=== PATIENT | male | born 1945 | race Caucasian/White ===

== ENCOUNTER 2017-10-25 17:47 | Inpatient (IN) | payer OTHER ==
[~2017-10-25] VITALS: Ht 165.1 cm; Wt 73.0 kg
--- NOTE | ~2017-10-25 | H ---
[facility] [place] [place] [address] HISTORY AND PHYSICAL Name: PATRICIO LINCOLN Room #: 205-P ADM IN M.R.#: [id number] Admission: 10/25/17 Attend Phys: Isi Reddy MD Discharge: Date of : 43 Report #: [id number] THIS REPORT FOR: //name// CC: Yahir Reddy DATE OF SERVICE: 10/25/2017 ATTENDING PHYSICIAN: Isi Reddy MD. CHIEF COMPLAINT: Persistent nausea and fever. HISTORY OF PRESENT ILLNESS: The patient is a 72-year-old gentleman who was having persistent nausea for about a week and lower abdominal pain. He was seen in the office on and noted to have elevated white cell count. He was started on Cipro, which seemed to help with his abdominal pain. The patient continued to have persistent nausea at home and was just not able to keep any fluids down. He also started having a fever. He presented to the Emergency Room and on evaluation with a CT was noted to have a left lower lobe lung infiltrate, which was dense and also changes around the second part of the duodenum and stomach, suggestive of possible peptic ulcer disease with complication, possible perforation. The patient is now being admitted to the hospital. He was started on IV antibiotics and on IV fluids. He reports that he feels a little better. He reports that the nausea has also improved. PAST MEDICAL HISTORY: Significant for history of diverticulitis, thoracic kyphosis, hemorrhoids, sleep apnea, gastroesophageal reflux disease. PAST SURGICAL HISTORY: Figueroa patrick surgery in the back, hemorrhoid resection and colon resection. ALLERGIES: HE IS KNOWN TO BE ALLERGIC TO MORPHINE. MEDICATIONS: He currently on was gabapentin, simvastatin, hydrocodone, aspirin, tamsulosin, omeprazole, multivitamin, calcium supplement, vitamin E, ascorbic acid, Claritin, Singulair, Zantac, carbamazepine, meloxicam and Provigil. SOCIAL HISTORY: He is , lives with his . He does not smoke. REVIEW OF SYSTEMS: He did complain of having fever and also the abdominal pain. He had persistent nausea, did not report any cough, chest pain or any breathing difficulty or any shortness of air or any urinary symptoms. PHYSICAL EXAMINATION: GENERAL: Pleasant elderly gentleman who was resting in bed. VITAL SIGNS: He was febrile with a temperature of 36.8, pulse of 75, [facility] [address] [place] [address] HISTORY AND PHYSICAL Name: PATRICIO LINCOLN Room #: 205-P [facility] IN .R.#: [id number] Admission: 10/25/17 Attend Phys: Isi Reddy MD Discharge: Date of : 43 Report #: [id number] respiratory rate 18, blood pressure 115/56, oxygen saturation 93% on room air. HEENT: Skull was atraumatic. There was mild pallor, no icterus. Mucosa was moist. NECK: Supple. LUNGS: Clear with decreased air entry on the left side in the lung bases. HEART: First and second heart sound, which was normal. ABDOMEN: The patient had tenderness in the lower abdomen, which was diffuse. There was no guarding and bowel sounds are normally heard. There were no masses palpable. NEUROLOGIC: The patient was moving all 4 extremities equally and normally and cranial nerve examination normal. LABORATORY DATA: On admission showed urine, which was clear with no evidence of nitrites or leukocyte esterase. There was 1+ blood. White cell count was 9.2, hemoglobin 14, hematocrit 39.9 and a platelet count of 186. Sodium was 135, potassium 3.1, chloride of 98, bicarbonate 29, BUN of 12, creatinine of 0.9 and a glucose of 120. AST was 113, ALT of 98, alkaline phosphatase 158, albumin 2.7. CT of the abdomen showed focal thickening and adjacent mild stranding around the second portion of the duodenum and distal stomach, suggestive of ulcer disease and possible infiltration, left lobe dense infiltrate with bronchograms suggestive of pneumonia, right inguinal canal mass, possible testicle or simple fluid and small abdominal aortic aneurysm. ASSESSMENT: 1. Left lung infiltrate. 2. Peptic ulcer disease, possible perforation. 3. Abdominal aortic aneurysm. 4. Hypokalemia. 5. Obstructive sleep apnea. 6. Gastroesophageal reflux disease. 7. Benign prostatic hypertrophy. PLAN: To restart his home medications and continue him on IV fluids along with clear liquid diet. We will have a GI consultation with Dr. Cortez for upper endoscopy and stop the meloxicam and the ibuprofen and replace the potassium. Also, continue on IV antibiotics, the Rocephin and Zithromax and monitor his lab work. By: [id number] Isi Reddy MD /nt
--- NOTE | ~2017-10-25 | D ---
[facility] [place] [address] [place] [address] DISCHARGE SUMMARY Name: PATRICIO LINCOLN Room #: 205-P [facility] IN M.R.#: [id number] Admission: 10/25/17 Attend Phys: Isi Reddy MD Discharge: 10/29/17 Date of : 43 Report #: [id number] THIS REPORT FOR: //name// CC: Yahir Reddy FINAL DIAGNOSES: 1. Community-acquired pneumonia. 2. Abdominal pain. 3. Nausea, vomiting. HOSPITAL COURSE: The patient was admitted with abdominal pain, nausea and vomiting. There was concern for some gastritis or duodenitis based on CT revealing some inflammation; however, there was a note in diagnosis of left lower lobe pneumonia, community acquired. He was treated with antibiotics with improvement of his symptoms. His GI issues resolved with symptomatic treatment. GI service recommended an EGD several weeks once his pneumonia clears. Followup x-ray was still revealing a patchy interstitial and alveolar infiltrate in the left mid lower lung. PHYSICAL EXAMINATION: GENERAL: On the day of discharge, he was awake and alert with stable vital signs including and O2 sat of 94% on room air. LUNGS: Clear. HEART: Regular. ABDOMEN: Soft, normoactive bowel sounds. EXTREMITIES: No edema. DISPOSITION: He is discharged to home with diet and activity as tolerated, resume all home medications. No anti-inflammatory medications. He will have Ceftin for one more week. Follow up with Dr. Arita next week and will need GI followup in a month. <ELECTRONICALLY SIGNED> By: Luis Alberto Dumont MD 10/30/17 [id number] Luis Alberto Dumont MD /nt
[2017-10-25 17:57] VITALS: BP 174/88
[2017-10-25 18:30] LABS: ABSOLUTE NEUTROPHILS 7.6 thou/uL (1.4-8.2); BASOPHILS 0.1 % (0.0-2.0); HEMATOCRIT 39.9 % (42.0-52.0); LYMPHOCYTES 4.2 % (24.0-44.0); MCH 35.3 pg (26.0-34.0); MCHC 35.1 g/dL (28.0-37.0); MCV 100.5 fL (80.0-100.0); PLATELET COUNT 186 thou/uL (150-400); POLYS 82.7 % (36.0-66.0); RBC 3.97 mil/uL (4.50-6.00); RDW 12.6 % (10.5-14.5); WBC 9.2 thou/uL (4.0-11.0)
[2017-10-25] MEDS ORDERED: ZOCOR20 MG PO (18:41)
[2017-10-25] MEDS ORDERED: NEURONTIN 300300 M1 PO (18:41)
[2017-10-25] MEDS ORDERED: FLONASE 0.05%50 MCG NASAL (18:42)
[2017-10-25] MEDS ORDERED: NORCO 10-325 T1 EACH PO (18:42)
[2017-10-25] MEDS ORDERED: FLOMAX0.4 MG PO (18:42)
[2017-10-25] MEDS ORDERED: ASPIR 8181 MG PO (18:42)
[2017-10-25] MEDS ORDERED: OMEPRAZOLE40 MG PO (18:43)
[2017-10-25] MEDS ORDERED: TUMS PO (18:43)
[2017-10-25] MEDS ORDERED: UNICOMPLEX M TA1 TA1 PO (18:43)
[2017-10-25] MEDS ORDERED: VITAMIN E400 UNI7 PO (18:44)
[2017-10-25 18:45] LABS: CALCIUM 9.6 mg/dL (8.5-10.1); CREATININE 0.9 mg/dL (0.7-1.3); POTASSIUM 3.1 mmol/L (3.5-5.1)
[2017-10-25] MEDS ORDERED: VITAMINC500 PO (18:45)
[2017-10-25] MEDS ORDERED: TYLENOL EXTRA500 MG PO (18:46)
[2017-10-25] MEDS ORDERED: ZANTAC 150MG T150 M1 PO (18:46)
[2017-10-25] MEDS ORDERED: SINGULAIR 10 MG10 M1 PO (18:46)
[2017-10-25] MEDS ORDERED: CLARITIN10 MG PO (18:46)
[2017-10-25] MEDS ORDERED: PROVIGIL 200 M200 M1 PO (18:47)
[2017-10-25] MEDS ORDERED: MOBIC15 MG PO (18:47)
[2017-10-25] MEDS ORDERED: CARBAMAZEPINE200 M5 PO (18:47)
[2017-10-25 18:49] LABS: ALBUMIN 2.7 g/dL (3.4-5.0); TOTAL BILIRUBIN 0.3 mg/dL (<0.1-1.0); TOTAL PROTEIN 7.8 g/dL (6.4-8.2)
[2017-10-25 19:49] LABS: URINE BILIRUBIN NEGATIVE (Negative); URINE BLOOD 1+ (Negative); URINE CLARITY CLEAR; URINE COLOR YELLOW; URINE GLUCOSE-RANDOM* NEGATIVE (Negative); URINE KETONES NEGATIVE (Negative); URINE LEUKOCYTES-REFLEX NEGATIVE (Negative); URINE NITRITE-REFLEX NEGATIVE (Negative); URINE PROTEIN (DIPSTICK) NEGATIVE (Negative); URINE UROBILINOGEN 0.2 E.U./dl (0.2-1.0)
[2017-10-25 19:57] LABS: BACTERIA-REFLEX 1-9 Few /HPF (None Seen); CASTS None Seen /LPF (None Seen); CRYSTALS None Seen /LPF (None Seen); SQUAMOUS 0-3 Few /LPF (0-3); URINE WBC-REFLEX 0-5 Rare /HPF (0-5)
[2017-10-25 19:58] LABS: URINE RBC 0-2 Rare /HPF (0-2)
[2017-10-25 20:44] VITALS: BP 158/83
[2017-10-25 20:59] VITALS: BP 156/83
[2017-10-25 21:10] VITALS: BP 133/69
[2017-10-25] MEDS ORDERED: XALATAN2.5 ML (23:54)
[2017-10-26 00:36] VITALS: BP 127/67
[2017-10-26 03:40] VITALS: BP 119/65
[2017-10-26 08:20] VITALS: BP 115/56
[2017-10-26 09:58] LABS: BASOPHILS 0.1 % (0.0-2.0); EOSINOPHILS 0.2 % (0.0-3.0); HEMATOCRIT 33.1 % (42.0-52.0); HEMOGLOBIN 11.6 gm/dL (14.0-18.0); LYMPHOCYTES 7.6 % (24.0-44.0); MCH 35.1 pg (26.0-34.0); MCHC 34.9 g/dL (28.0-37.0); MCV 100.4 fL (80.0-100.0); MONOCYTES 11.6 % (1.0-8.0); PLATELET COUNT 179 thou/uL (150-400); POLYS 80.5 % (36.0-66.0); RDW 12.8 % (10.5-14.5); WBC 7.5 thou/uL (4.0-11.0)
[2017-10-26 10:06] LABS: CALCIUM 8.7 mg/dL (8.5-10.1); CREATININE 0.9 mg/dL (0.7-1.3); MAGNESIUM 1.8 mg/dL (1.8-2.4)
[2017-10-26 10:10] LABS: POTASSIUM 2.8 mmol/L (3.5-5.1)
[2017-10-26 11:16] VITALS: BP 123/60
[2017-10-26 16:18] VITALS: BP 119/72
[2017-10-26 17:41] LABS: CALCIUM 8.5 mg/dL (8.5-10.1); CREATININE 0.9 mg/dL (0.7-1.3)
[2017-10-26 17:43] LABS: POTASSIUM 2.7 mmol/L (3.5-5.1)
[2017-10-26 19:29] VITALS: BP 116/63
[2017-10-27 03:46] VITALS: BP 136/74
[2017-10-27 05:59] LABS: % SATURATION 29 % (20-39); IRON 44 ug/dL (65-175); TIBC 154 ug/dL (250-450)
[2017-10-27 06:03] LABS: ALBUMIN 2.1 g/dL (3.4-5.0); CALCIUM 8.5 mg/dL (8.5-10.1); CREATININE 0.8 mg/dL (0.7-1.3); POTASSIUM 3.1 mmol/L (3.5-5.1); TOTAL BILIRUBIN 0.2 mg/dL (<0.1-1.0); TOTAL PROTEIN 6.1 g/dL (6.4-8.2)
[2017-10-27 07:36] VITALS: BP 141/80
[2017-10-27 11:47] VITALS: BP 151/81
[2017-10-27 15:36] VITALS: BP 146/88
[2017-10-27 20:13] VITALS: BP 126/83
[2017-10-27 23:08] LABS: HEPATITIS B SURFACE AG Negative (Negative); HEPATITIS C VIRUS AB <0.1 (0.0-0.9)
[2017-10-28 04:27] VITALS: BP 135/81
[2017-10-28 04:31] LABS: CALCIUM 9.2 mg/dL (8.5-10.1); CREATININE 0.8 mg/dL (0.7-1.3); POTASSIUM 3.4 mmol/L (3.5-5.1)
[2017-10-28 05:54] LABS: HEMATOCRIT 33.3 % (42.0-52.0); HEMOGLOBIN 11.5 gm/dL (14.0-18.0); MCH 34.5 pg (26.0-34.0); MCHC 34.6 g/dL (28.0-37.0); MCV 99.7 fL (80.0-100.0); RBC 3.34 mil/uL (4.50-6.00); RDW 12.7 % (10.5-14.5); WBC 8.2 thou/uL (4.0-11.0)
[2017-10-28 07:53] VITALS: BP 127/78
[2017-10-28 11:56] VITALS: BP 120/76
[2017-10-28 15:55] VITALS: BP 126/77
[2017-10-28 19:07] VITALS: BP 129/85
[2017-10-29 04:19] VITALS: BP 116/74
[2017-10-29 07:28] VITALS: BP 128/68
[2017-10-29 11:14] VITALS: BP 119/71
[2017-10-29 11:36] LABS: ALBUMIN 2.3 g/dL (3.4-5.0); DIRECT BILIRUBIN 0.1 mg/dL (<0.1-0.3); TOTAL BILIRUBIN 0.3 mg/dL (<0.1-1.0); TOTAL PROTEIN 6.6 g/dL (6.4-8.2)
[2017-10-29] MEDS ORDERED: CEFUROXIME500 MG PO (13:03)
[2017-10-29 13:16] VITALS: BP 119/71
== END 2017-10-29 13:48 | disposition home or self-care (01) | DRG 391 ==
LOC: ER 17:47 → EROBS 20:24 → 2N 20:24
PROVIDERS: Internal Medicine; Internal Medicine Gastroenterology; Internal Medicine Geriatric Medicine; Physician Assistant
DX: K29.90 Gastroduodenitis, unspecified, without bleeding (principal); J18.9 Pneumonia, unspecified organism; E46 Unspecified protein-calorie malnutrition; K21.9 Gastro-esophageal reflux disease without esophagitis; I71.4 Abdominal aortic aneurysm, without rupture; E87.6 Hypokalemia; G47.33 Obstructive sleep apnea (adult) (pediatric); E78.00 Pure hypercholesterolemia, unspecified; N40.0 Benign prostatic hyperplasia without lower urinary tract symptoms; T39.395A Adverse effect of other nonsteroidal anti-inflammatory drugs [NSAID], initial encounter; Y92.89 Other specified places as the place of occurrence of the external cause; Z68.26 Body mass index [BMI] 26.0-26.9, adult; Z98.42 Cataract extraction status, left eye; Z98.41 Cataract extraction status, right eye; Z79.51 Long term (current) use of inhaled steroids; Z79.82 Long term (current) use of aspirin; Z79.899 Other long term (current) drug therapy; Z88.5 Allergy status to narcotic agent
CPT/HCPCS: 10081

== ENCOUNTER → 2019-05-12 | Outpatient (CLI) | payer OTHER ==
[~2019-05-12] MED LIST: ASPIR 8181 MG PO; CARBAMAZEPINE200 M5 PO; CEFUROXIME500 MG PO; CLARITIN10 MG PO; FLOMAX0.4 MG PO; FLONASE 0.05%50 MCG NASAL; MOBIC15 MG PO; NEURONTIN 300300 M1 PO; NORCO 10-325 T1 EACH PO; OMEPRAZOLE40 MG PO; PROVIGIL 200 M200 M1 PO; SINGULAIR 10 MG10 M1 PO; TUMS PO; TYLENOL EXTRA500 MG PO; UNICOMPLEX M TA1 TA1 PO; VITAMIN E400 UNI7 PO; VITAMINC500 PO; XALATAN2.5 ML; ZANTAC 150MG T150 M1 PO; ZOCOR20 MG PO
== END ==
LOC: SJCVCIMAG 08:51
DX: I65.23 Occlusion and stenosis of bilateral carotid arteries (principal); I08.8 Other rheumatic multiple valve diseases; E78.5 Hyperlipidemia, unspecified; G47.33 Obstructive sleep apnea (adult) (pediatric); Z78.9 Other specified health status

== ENCOUNTER → 2020-01-19 | Outpatient (CLI) | payer OTHER | LOC: SJCVC 15:23 | PROVIDERS: ATTEND Internal Medicine Cardiovascular Disease | DX: R00.1 Bradycardia, unspecified (principal); R01.1 Cardiac murmur, unspecified; E78.00 Pure hypercholesterolemia, unspecified; I35.0 Nonrheumatic aortic (valve) stenosis; Z79.899 Other long term (current) drug therapy ==

== ENCOUNTER → 2020-10-17 | Outpatient (CLI) | payer OTHER | LOC: SJCVCIMAG 10-12 07:29 | PROVIDERS: ATTEND Internal Medicine Cardiovascular Disease | DX: R94.31 Abnormal electrocardiogram [ECG] [EKG] (principal); I08.0 Rheumatic disorders of both mitral and aortic valves; E78.00 Pure hypercholesterolemia, unspecified; R01.1 Cardiac murmur, unspecified; R07.9 Chest pain, unspecified; I73.9 Peripheral vascular disease, unspecified; E78.5 Hyperlipidemia, unspecified; M19.90 Unspecified osteoarthritis, unspecified site; G47.33 Obstructive sleep apnea (adult) (pediatric); Z79.82 Long term (current) use of aspirin; Z79.899 Other long term (current) drug therapy; Z88.5 Allergy status to narcotic agent ==

== ENCOUNTER → 2020-11-10 | Outpatient (CLI) | payer OTHER | LOC: SJCVCIMAG 07:06 | PROVIDERS: ATTEND Internal Medicine Cardiovascular Disease | DX: I71.4 Abdominal aortic aneurysm, without rupture (principal); I73.9 Peripheral vascular disease, unspecified; M79.604 Pain in right leg; M79.605 Pain in left leg; I25.10 Atherosclerotic heart disease of native coronary artery without angina pectoris; E78.5 Hyperlipidemia, unspecified; Z79.899 Other long term (current) drug therapy ==